=== PATIENT | male | born 1960 | race Caucasian/White ===

== ENCOUNTER → 2017-03-19 | Outpatient (CLI) | payer OTHER | LOC: BMCIMAGING 09:38 | PROVIDERS: ATTEND Podiatrist Foot & Ankle Surgery | DX: M19.072 Primary osteoarthritis, left ankle and foot (principal); M20.12 Hallux valgus (acquired), left foot; M21.612 Bunion of left foot ==

== ENCOUNTER 2017-11-24 14:16 | Emergency (ER) | payer OTHER ==
[2017-11-24] MEDS ORDERED: RANITIDINE 50 MG/2 ML VIAL IVP ONE (14:30)
[2017-11-24] MEDS ORDERED: methylPREDNISolone SOD SUCC 125 MG/2 ML VIAL IVP ONE (14:30)
[2017-11-24] MEDS ORDERED: EPINEPHrine 1 MG/ML INJ IM ONE (14:30)
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
[2017-11-24] MEDS ORDERED: NS 1,000 ML IV ONE (14:54)
[2017-11-24 15:51] VITALS: BP 120/58
== END 2017-11-24 15:49 | disposition home or self-care (01) ==
DX: T78.2XXA Anaphylactic shock, unspecified, initial encounter (principal); T63.441A Toxic effect of venom of bees, accidental (unintentional), initial encounter; Y93.55 Activity, bike riding; Z91.030 Bee allergy status
CPT/HCPCS: 96374; J0171; J1200; J2780; J2930